=== PATIENT | female | born 1950 | race Caucasian/White ===

== ENCOUNTER 2017-10-15 11:00 | Outpatient (CLI) | payer MEDICARE, MEDICAID ==
[2017-10-15 11:24] LABS: Mean Platelet Volume 7.1 fL (7.4-10.4); Red Blood Cell (RBC) Count 4.77 mill/uL (4.20-5.40); White Blood Cell (WBC) Count 3.3 thou/uL (4.8-10.8)
[2017-10-15 11:48] LABS: ALT (SGPT) 12 U/L (8-55); AST (SGOT) 19 U/L (5-34); Alkaline Phosphatase 89 U/L (40-150); Anion Gap 11 mmol/L (10-20); BUN (Urea Nitrogen) 13 mg/dL (9.8-20.1); Bilirubin, Direct 0.2 mg/dL (0.1-0.3); Bilirubin, Total 0.4 mg/dL (0.2-1.2); Calc. Creatinine Clearance 0 mL/min (70-130); Calcium 9.8 mg/dL (7.8-10.44); Carbon Dioxide 27 mmol/L (23-31); Chloride 106 mmol/L (98-107); Cholesterol 230 mg/dl (< 200 Desired); Estimated GFR-MDRD 79; Globulin 2.7 g/dL (2.4-3.5); LDL Cholesterol, Calculated 146 mg/dL; Protein, Total 6.5 g/dL (6.0-8.3)
[2017-10-15] MEDS ORDERED: Iopamidol 370 76% 100 ML VIAL ONE (11:48)
--- NOTE | 2017-10-15 13:57 | CT ---
CT ABDOMEN AND PELVIS WITH CONTRAST: HISTORY: Vomiting. COMPARISON: None. FINDINGS: Calcified granulomata at the left lung base. There is a fat-containing posterior diaphragmatic herni a. Prior gastric bypass surgery. No dilated loops of bowel. No evidence of obstruction. Mild diverticular disease of the sigmoid colon without active inflammation. Fat-containing ventral h ernia without evidence of obstruction. There appears to be abnormal prominence of the cervix, rather difficult to evaluate on this examinati on. Possible fluid within the endometrial canal. This is abnormal, given the patient's age. Numerous phleboliths in the pelvis. There are small common iliac and internal iliac lymph nodes, as well as inguinal lymph nodes. There is mucosal irregularity of the hepatic flexure of the colon for a length of approximately 5.5 c m. There is a subtle hypodensity, interpolar right kidney, measuring 9 mm, and fluid attenuation, li [place] a cyst. Hypodensity, inferior pole, left kidney, also fluid attenuation, also likely a cyst. IMPRESSION: 1. No evidence of bowel obstruction. 2. Mucosal irregularity of the hepatic flexure, measuring approximately 5 cm. Recommend follow-up c olonoscopy. 3. Abnormal prominence of the cervix, as well as what appears to be complex fluid within the endomet rial canal and possibly some fibroids. This is abnormal, given the patient's age. Follow-up ultraso und of the pelvis is recommended. 4. Moderate diverticular disease of the sigmoid colon without evidence of active inflammation. 5. Punctate calculus, interpolar right kidney, without evidence of obstructive uropathy. POS: [facility]
== END 2017-10-15 11:01 | disposition home or self-care (01) ==
LOC: CT 11:00
PROVIDERS: ATTEND Family Medicine
DX: R11.10 Vomiting, unspecified (principal); K63.89 Other specified diseases of intestine; K57.30 Diverticulosis of large intestine without perforation or abscess without bleeding; N20.0 Calculus of kidney; N88.8 Other specified noninflammatory disorders of cervix uteri
CPT/HCPCS: 36415; 74177; 80053; 80061; 82248; 82306; 82607; 82746; 84425; 84443; 85027